=== PATIENT | female | born 1990 | race Hispanic/Latino ===

== ENCOUNTER 2016-10-19 12:49 | Observation (INO) | payer SELFPAY ==
[2016-10-19 13:07] VITALS: TEMP 97.8; O2SAT 100
[2016-10-19] MEDS ORDERED: Sodium Chloride 0.9% 1,000 ML IV STA (13:35)
--- NOTE | 2016-10-19 13:38 | ED PDOC ---
HPI: Abdomen Time Seen by Provider: 10/19/16 13:27 Chief Complaint (Nursing): Abdominal Pain Chief Complaint (Provider): Abdominal Pain History Per: Patient History/Exam Limitations: no limitations Onset/Duration Of Symptoms: Days (x2 weeks) Current Symptoms Are (Timing): Still Present Additional Complaint(s): 26 y/o female presents to the emergency department with a complaint of an intermittent right upper abdominal pain near the rib cage that radiates to the right side of the back x2 weeks. Associated with on/off nausea. States symptoms worsens after she eats. Reports experiencing similar lower abdominal pain in the past, getting a CAT Scan completed in [facility], and diagnosed with constipation. Returns to the emergency department because she is concerned the pain is now near the upper right region. Patient took Tylenol yesterday for the relief of pain. Denies vomiting, diarrhea, abnormal bowel movement, chest pain, numbness, tingling, vision changes, shortness of breath, dysuria, or any new foods/drinks. Past Medical History Reviewed: Historical Data, Nursing Documentation, Vital Signs Vital Signs: Last Vital Signs Temp 97.8 F 10/19/16 13:04 Pulse 82 10/19/16 16:00 Resp 14 10/19/16 16:00 BP 126/77 10/19/16 16:00 Pulse Ox 100 10/19/16 17:01 - Medical History PMH: No Chronic Diseases - Surgical History Surgical History: No Surg Hx - Family History Family History: States: Unknown Family Hx - Social History Alcohol: None Drugs: Denies - Allergies Allergies/Adverse Reactions: Allergies Allergy/AdvReac Type Severity Reaction Status Date / Time Penicillins Allergy RASH Verified 10/19/16 13:03 Review of Systems ROS Statement: Except As Marked, All Systems Reviewed And Found Negative Constitutional: Negative for: Other (No new foods or drinks) Eyes: Negative for: Vision Change Cardiovascular: Negative for: Chest Pain Respiratory: Negative for: Shortness of Breath Gastrointestinal: Positive for: Nausea, Abdominal Pain (Right upper region near the rib cage that radiates to the back region). Negative for: Vomiting, Diarrhea, Other (Abnormal bowel movement) Genitourinary Female: Negative for: Dysuria Musculoskeletal: Positive for: Back Pain (Right-sided back pain) Neurological: Negative for: Numbness (Tingling) Physical Exam - Reviewed Nursing Documentation Reviewed: Yes Vital Signs Reviewed: Yes - Physical Exam Appears: Positive for: Non-toxic, No Acute Distress Head Exam: Positive for: ATRAUMATIC, NORMAL INSPECTION, NORMOCEPHALIC Skin: Positive for: Normal Color, Warm, Dry Neck: Positive for: Normal, Supple Cardiovascular/Chest: Positive for: Regular Rate, Rhythm. Negative for: Murmur Respiratory: Positive for: Normal Breath Sounds. Negative for: Accessory Muscle Use, Respiratory Distress Gastrointestinal/Abdominal: Positive for: Soft, Tenderness (Tenderness of the RUQ and RLQ region.). Negative for: Normal Exam Back: Positive for: Other (Right flank pain) Extremity: Positive for: Normal ROM. Negative for: Pedal Edema Neurologic/Psych: Positive for: Alert, Oriented - Laboratory Results Result Diagrams: 10/19/16 13:46 10/19/16 13:46 Interpretation Of Abn Labs: no acute Urine dip results: Negative for: Leukocyte Esterase, Nitrate - ECG O2 Sat by Pulse Oximetry: 100 (RA) Pulse Ox Interpretation: Normal Medical Decision Making Medical Decision Making: Time: 13:35 Initial impression: Abdominal pain Initial plan: --CMP --Lipase --Urine DIP & Preg --CBC w/ diff --Toradol 15 mg IV --Sodium Chloride 1L IV 1,000 mls/hr --Abdomen Limited US --Admit to hospital routine: ED Observation for abdominal pain Scribe Attestation: Documented by Pippa Espitia, acting as a scribe for Joe Salvador MD. Provider Scribe Attestation: All medical record entries made by the Scribe were at my direction and personally dictated by me. I have reviewed the chart and agree that the record accurately reflects my personal performance of the history, physical exam, medical decision making, and the department course for this patient. I have also personally directed, reviewed, and agree with the discharge instructions and disposition. ED OBSERVATION Date of observation admission: 10/19/16 Time of observation admission: 13:36 - Observation admission statement Patient is being placed in observation because:: abdominal pain - Goals of Observation Goals of observation are:: --Symptoms resolve and US results are read. - Progress Note Progress Note: 10/19/16 13:56 --Pending ultrasound completion. 10/19/16 15:06 --Patient resting comfortably pending US completion. 10/19/16 18:45 Dr. Juan to take over care. FU on CT. Dispo accordingly. Disposition - Clinical Impression Clinical Impression: Abdominal pain - Patient ED Disposition Is Patient to be Admitted: No Counseled Patient/Family Regarding: Studies Performed, Diagnosis - Disposition Disposition: Transfer of Care Disposition Time: 18:46 Condition: STABLE Patient Signed Over To: Bao Juan
[2016-10-19 13:54] LABS: BASO % 0.7 % (0.0-2.0); EOS % 0.8 % (0.0-4.0); LYMPH # 1.1 K/uL (1.0-4.3); LYMPH % 20.5 % (20.0-40.0); MEAN CELL VOLUME 94.8 fl (81.0-99.0); MEAN CORPUSCULAR HGB CONC 33.7 g/dL (33.0-37.0); MEAN PLATELET VOLUME 11.1 fl (7.2-11.7); MONO # 0.4 K/uL (0.0-0.8); MONO % 8.3 % (0.0-10.0); NEUT # 3.7 K/uL (1.8-7.0); NEUT % 69.7 % (50.0-75.0); NRBC % 0.1 % (0.0-0.0); RBC 4.37 Mil/uL (3.80-5.20); RED CELL DISTRIBUTION WIDTH 12.8 % (11.5-14.5); WHITE BLOOD COUNT 5.3 K/uL (4.8-10.8)
[2016-10-19 14:02] LABS: ALB/GLOB RATIO 1.5 (1.0-2.1); ALBUMIN 4.8 g/dL (3.5-5.0); ALT/SGPT 31 U/L (9-52); AST/SGOT 23 U/L (14-36); BLOOD UREA NITROGEN 9 mg/dl (7-17); CALCIUM 9.7 mg/dL (8.4-10.2); GFR AFRICAN-AMERICAN > 60; GFR NON-AFRICAN AMERICAN > 60; LIPASE 54 U/L (23-300)
[2016-10-19] MEDS ORDERED: Iohexol 240 (50 ml) PO ONE (17:01)
[2016-10-19] MEDS ORDERED: Iohexol 240 (50 ml) ONE (17:04)
[2016-10-19 18:44] VITALS: BP 126/77; PULSE 82; RESP 14
[2016-10-19] MEDS ORDERED: Iohexol 300 100 ML IJ ONE (19:10)
[2016-10-19] MEDS ORDERED: Sodium Chloride 0.9% 50 ML IV ONE (19:10)
--- NOTE | 2016-10-19 19:28 | ED PDOC ---
- Laboratory Results Result Diagrams: 10/19/16 13:46 10/19/16 13:46 - ECG O2 Sat by Pulse Oximetry: 100 (RA) - Progress Re-evaluation Time: 21:05 Condition: Re-examined, Improved Medical Decision Making Medical Decision Makin:00 Pt signed out to me by Dr. Modesto MD. Pending CT Abdomen. 20:14 CT Abdomen FINDINGS: Lower thorax: No acute findings. No pleural effusions. ABDOMEN: Liver: Unremarkable. No masses. Gallbladder and bile ducts: Unremarkable. No calcified stones. No ductal dilatation. Pancreas: Unremarkable. No mass. No ductal dilatation. Spleen: Prominent spleen. Adrenals: Unremarkable. No mass. Kidneys and ureters: Unremarkable. No solid mass. No hydronephrosis. Stomach and bowel: Unremarkable. No bowel obstruction. No mucosal thickening. Appendix: No findings to suggest acute appendicitis. PELVIS: Bladder: Unremarkable. No mass. Reproductive: Prominent right ovary (3 - 3.5 cm size). Small bilateral ovarian cysts likely present. ABDOMEN and PELVIS: Intraperitoneal space: Unremarkable. No free air. No significant fluid collection. Bones/joints: No acute fracture nor dislocation. Soft tissues: Unremarkable. Vasculature: Unremarkable. No abdominal aortic aneurysm. Lymph nodes: Unremarkable. No enlarged lymph nodes. IMPRESSION: No acute pathology. Probable small bilateral ovarian cysts. The right ovary is prominent in size. Prominent spleen. No acute bowel pathology. No hydronephrosis. Disposition Doctor Will See Patient In The: Office Counseled Patient/Family Regarding: Studies Performed, Diagnosis, Need For Followup - Clinical Impression Clinical Impression: Abdominal pain, Ovarian cyst - POA Present On Arrival: None - Disposition Disposition: Routine/Home Disposition Time: 21:05 Condition: GOOD
--- NOTE | 2016-10-20 07:01 | CT ---
PROCEDURE: CT Abdomen and Pelvis with contrast HISTORY: abd pain COMPARISON: None. TECHNIQUE: Contrast dose: 100 cc of Omnipaque 300 Radiation dose: Total exam DLP = 537 mGy-cm. This CT exam was performed using one or more of the following dose reduction techniques: Automated exposure control, adjustment of the mA and/or kV according to patient size, and/or use of iterative reconstruction technique. FINDINGS: LOWER THORAX: Unremarkable. LIVER: Unremarkable. No gross lesion or ductal dilatation. GALLBLADDER AND BILE DUCTS: Unremarkable. PANCREAS: Unremarkable. No gross lesion or ductal dilatation. SPLEEN: Unremarkable. ADRENALS: Unremarkable. No mass. KIDNEYS AND URETERS: Unremarkable. No hydronephrosis. No solid mass. VASCULATURE: Unremarkable. No aortic aneurysm. BOWEL: Unremarkable. No obstruction. No gross mural thickening. APPENDIX: Normal appendix. PERITONEUM: Unremarkable. No free fluid. No free air. LYMPH NODES: Unremarkable. No enlarged lymph nodes. BLADDER: Unremarkable. REPRODUCTIVE: Unremarkable. BONES: No acute fracture. OTHER FINDINGS: None. IMPRESSION: Unremarkable contrast enhanced CT of the abdomen and pelvis.
--- NOTE | 2016-10-20 07:40 | US ---
HISTORY: RUQ pain COMPARISON: None. TECHNIQUE: Sonographic evaluation of the right upper quadrant of the abdomen. FINDINGS: LIVER: Measures cm in length. Normal echogenicity of the liver parenchyma. No mass. No intrahepatic bile duct dilatation. GALLBLADDER: Unremarkable. No gallstones. COMMON BILE DUCT: Measures 3 mm. No stones. No dilatation. PANCREAS: Unremarkable as visualized. No mass. No ductal dilatation. RIGHT KIDNEY: Measures cm in length. Normal echogenicity. No calculus, mass, or hydronephrosis. AORTA: No aneurysmal dilatation. IVC: Unremarkable. OTHER FINDINGS: None . IMPRESSION: Normal exam.
== END 2016-10-19 21:08 | disposition home or self-care (01) ==
LOC: H.ER 12:49 → H.EROBSV 13:36
PROVIDERS: ADMIT Emergency Medicine; ATTEND Emergency Medicine
DX: N83.201 Unspecified ovarian cyst, right side (principal); N83.202 Unspecified ovarian cyst, left side; K59.00 Constipation, unspecified
CPT/HCPCS: 74177; 76705; 80053; 81025; 83690; 85025; 96374; 99285; G0378; J1885; J7040; Q9966; Q9967